=== PATIENT | female | born 1955 | race Caucasian/White ===

== ENCOUNTER 2016-09-01 05:29 | Inpatient (IN) | payer OTHER ==
[~2016-09-01] VITALS: Ht 152.4 cm; Wt 71.2 kg
[~2016-09-01 05:29] MED LIST: ASPIR-TRIN325 M1 PO; PEN-VEE K,VEET500 MG PO; PERCOCET 5/31 TABLET PO; ZANTAC; ZANTAC75 MG PO
[2016-09-01 06:37] LABS: EOSINOPHIL (%) 0.4 % (0-5); IMMATURE GRANULOCYTE (%) 0.4 % (0.0-0.7); INSTRUMENT ABS NEUTROPHIL CT 5.8 K/uL; LYMPHOCYTE COUNT 1.4 K/uL (1.0-2.8); MCH 32.8 PG (29.0-34.0); MCV 99.4 FL (83-99); MEAN PLAT.VOLUME 9.2 uM^3 (9.5-12.4); MONOCYTE (%) 5.5 % (3-12); MONOCYTE COUNT 0.4 K/uL (0-0.8); NEUTROPHIL (%) 75.5 % (45-76); NEUTROPHIL COUNT 5.8 K/uL (1.8-6.4); PLATELET COUNT 263 K/uL (156-360); RBC DIS.WIDTH-CV 11.9 % (11.8-14.6); RBC DIS.WIDTH-SD 44.3 % (39-53); RED BLOOD COUNT 5.03 M/uL (3.80-5.20); WHITE BLOOD COUNT 7.7 K/uL (4.1-10.2)
[2016-09-01 06:50] LABS: CHLORIDE 105 mEq/L (99-109); POTASSIUM 4.9 mEq/L (3.7-5.4); SODIUM 139 mEq/L (136-147)
[2016-09-01 06:51] LABS: GLUCOSE 126 mg/dL (70-99)
[2016-09-01 06:53] LABS: ANION GAP 12 MEQ/L (2-14)
[2016-09-01 06:55] LABS: GFR ESTIMATE (CALCULATED) > 59 mL/min/
[2016-09-01 06:56] LABS: UREA NITROGEN (BUN) 14 mg/dL (9-23)
[2016-09-01 06:58] LABS: TROP-I INTERPRETATION NEGATIVE; TROPONIN-I 0.04 ng/mL (0.0-0.30)
[2016-09-01] MEDS ORDERED: ZANTAC75 M1 PO (07:54)
[2016-09-01] MEDS ORDERED: TYLENOL EXTRA500 MG PO (07:55)
[2016-09-01] MEDS ORDERED: ADVIL,NUPRIN,M200 MG PO (07:56)
[2016-09-01] MEDS ORDERED: [UNRECOGNIZED DRUG - OTHER] TP (07:58)
[2016-09-01 08:44] VITALS: BP 171/90
[2016-09-01 12:25] VITALS: BP 92/51
[2016-09-01 13:29] LABS: HDL CHOLESTEROL 57 MG/DL (Desirable>=50); LDL CHOLESTEROL 92 mg/dL (Desirable<100); NON-HDL CHOLESTEROL 108 mg/dL (Desirable<160); TOTAL CHOLESTEROL 165 mg/dL (Desirable<200); TRIGLYCERIDES 81 MG/DL (Normal: <150)
[2016-09-01 13:35] LABS: TROP-I INTERPRETATION POSITIVE; TROPONIN-I 0.76 ng/mL (0.0-0.30)
[2016-09-01 14:52] LABS: PROTHROMBIN TIME 10.2 (9.2-11.2); PTT 23.7 (25-32)
[2016-09-01 14:55] VITALS: BP 139/73
[2016-09-01 15:00] LABS: Estimated Average Glucose 97 mg/dL (70-123)
[2016-09-01 19:00] VITALS: BP 99/54
[2016-09-01 19:16] LABS: TROP-I INTERPRETATION POSITIVE; TROPONIN-I 2.43 ng/mL (0.0-0.30)
[2016-09-01 23:29] VITALS: BP 119/59
[2016-09-02 03:44] LABS: HEMATOCRIT 41.9 % (36.0-46.0); MCH 32.7 PG (29.0-34.0); MCHC 32.7 G/DL (30.0-36.0); MEAN PLAT.VOLUME 9.1 uM^3 (9.5-12.4); PLATELET COUNT 214 K/uL (156-360); RBC DIS.WIDTH-CV 11.9 % (11.8-14.6); RBC DIS.WIDTH-SD 43.9 % (39-53); RED BLOOD COUNT 4.19 M/uL (3.80-5.20); WHITE BLOOD COUNT 8.9 K/uL (4.1-10.2)
[2016-09-02 04:45] VITALS: BP 107/57
[2016-09-02 09:00] VITALS: BP 132/69
[2016-09-02 16:30] VITALS: BP 124/60
[2016-09-02 20:40] VITALS: BP 117/56
[2016-09-02 23:20] VITALS: BP 137/60
[2016-09-03 04:42] VITALS: BP 137/65
[2016-09-03 09:17] LABS: HEMATOCRIT 44.4 % (36.0-46.0); MCH 32.8 PG (29.0-34.0); MCHC 32.2 G/DL (30.0-36.0); MCV 101.8 FL (83-99); MEAN PLAT.VOLUME 9.6 uM^3 (9.5-12.4); PLATELET COUNT 188 K/uL (156-360); RBC DIS.WIDTH-CV 11.9 % (11.8-14.6); RBC DIS.WIDTH-SD 45.1 % (39-53); RED BLOOD COUNT 4.36 M/uL (3.80-5.20)
[2016-09-03 09:36] LABS: CHLORIDE 107 mEq/L (99-109)
[2016-09-03 09:37] LABS: POTASSIUM 4.4 mEq/L (3.7-5.4); SODIUM 139 mEq/L (136-147)
[2016-09-03 09:39] LABS: GLUCOSE 121 mg/dL (70-99)
[2016-09-03 09:40] LABS: ANION GAP 7 MEQ/L (2-14)
[2016-09-03 09:41] LABS: TOTAL BILIRUBIN 1.1 mg/dL (0.0-1.0)
[2016-09-03 09:42] LABS: ALKALINE PHOSPHATASE 44 IU/L (3-129); GFR ESTIMATE (CALCULATED) > 59 mL/min/
[2016-09-03 09:44] LABS: UREA NITROGEN (BUN) 7 mg/dL (9-23)
[2016-09-03] MEDS ORDERED: ATORVASTATIN CA40 MG PO (12:14)
[2016-09-03] MEDS ORDERED: NICOTINE PATCH1 EAC2 TD (12:14)
[2016-09-03] MEDS ORDERED: NITROSTAT0.4 MG SL (12:14)
[2016-09-03] MEDS ORDERED: BRILINTA90 MG PO (12:14)
[2016-09-03] MEDS ORDERED: CLEOCIN150 MG PO (12:14)
[2016-09-03] MEDS ORDERED: ASPIR-LOW81 MG PO (12:14)
[2016-09-03] MEDS ORDERED: ZESTRIL5 MG PO (12:18)
== END 2016-09-03 14:47 | disposition home or self-care (01) | DRG 247 ==
LOC: EME 05:29 → EDOF 07:36 → 5WEST 08:37 → 4EAST 14:06 → 5WEST 14:07 → 4EAST 14:43
PROVIDERS: Emergency Medicine; Hospitalist; Internal Medicine
DX: I21.4 Non-ST elevation (NSTEMI) myocardial infarction (principal); I10 Essential (primary) hypertension; E78.5 Hyperlipidemia, unspecified; K05.10 Chronic gingivitis, plaque induced; F17.210 Nicotine dependence, cigarettes, uncomplicated
CPT/HCPCS: 71010; 80048; 80053; 80061; 82607; 82746; 83036; 83880; 84484; 85025; 85027; 85347; 85379; 85610; 85730; 93005; 93306; 99281; 99285; C1725; C1769; C1874; C1887; J0461; J1644; J2250; J2270; J2405; J3010; J3246; J7030

== ENCOUNTER → 2016-11-03 | Outpatient (CLI) | payer OTHER ==
[~2016-11-03] MED LIST changes: +ADVIL,NUPRIN,M200 MG PO; +ASPIR-LOW81 MG PO; +ATORVASTATIN CA40 MG PO; +BRILINTA90 MG PO; +CLEOCIN150 MG PO; +NICOTINE PATCH1 EAC2 TD; +NITROSTAT0.4 MG SL; +TYLENOL EXTRA500 MG PO; +ZANTAC75 M1 PO; +ZESTRIL5 MG PO; +[UNRECOGNIZED DRUG - OTHER] TP
== END | disposition home or self-care (01) ==
LOC: EKG 10-23 14:00
DX: I51.89 Other ill-defined heart diseases (principal); R94.31 Abnormal electrocardiogram [ECG] [EKG]; I10 Essential (primary) hypertension
CPT/HCPCS: 93306

== ENCOUNTER 2017-07-20 09:31 | Emergency (ER) | payer SELFPAY ==
[~2017-07-20] VITALS: Ht 152.4 cm; Wt 76.9 kg
[2017-07-20 10:50] LABS: HEMATOCRIT 35.1 % (36.0-46.0); HEMOGLOBIN 11.8 G/DL (11.9-15.5); MCH 33.4 PG (29.0-34.0); MCHC 33.6 G/DL (30.0-36.0); MCV 99.4 FL (83-99); PLATELET COUNT 276 K/uL (156-360); RBC DIS.WIDTH-CV 11.4 % (11.8-14.6); RBC DIS.WIDTH-SD 41.4 % (39-53); RED BLOOD COUNT 3.53 M/uL (3.80-5.20)
[2017-07-20 10:59] LABS: ALBUMIN 4.4 g/dL (3.2-4.8)
[2017-07-20 11:00] LABS: CHLORIDE 106 mEq/L (99-109); POTASSIUM 4.7 mEq/L (3.7-5.4); SODIUM 141 mEq/L (136-147)
[2017-07-20 11:02] LABS: GLUCOSE 85 mg/dL (70-99)
[2017-07-20 11:04] LABS: TOTAL BILIRUBIN 1.2 mg/dL (0.0-1.0)
[2017-07-20 11:05] LABS: ALKALINE PHOSPHATASE 50 IU/L (3-129)
[2017-07-20 11:06] LABS: CREATININE 0.6 mg/dL (0.6-1.3); GFR ESTIMATE (CALCULATED) > 59 mL/min/
[2017-07-20 11:07] LABS: AST (GOT) 16 IU/L (2-34); UREA NITROGEN (BUN) 11 mg/dL (9-23)
[2017-07-20 11:09] LABS: ALT (GPT) 14 IU/L (3-49)
[2017-07-20] MEDS ORDERED: VALTREX1000 MG PO (11:11)
[2017-07-20] MEDS ORDERED: ULTRACET1 TABLET PO (11:11)
[2017-07-20 12:25] VITALS: BP 143/79
== END 2017-07-20 12:26 | disposition home or self-care (01) ==
LOC: EME 09:31
DX: B02.9 Zoster without complications (principal); K21.9 Gastro-esophageal reflux disease without esophagitis; Z87.891 Personal history of nicotine dependence; Z79.82 Long term (current) use of aspirin
CPT/HCPCS: 80053; 81003; 85027; 93005; 99281; 99284